=== PATIENT | female | born 1950 | race Caucasian/White ===

== ENCOUNTER 2024-11-14 08:25 | Outpatient (CLI) | payer OTHER, SELFPAY | END 2024-11-14 08:26 | disposition home or self-care (01) | LOC: NFLDREF 11-20 02:05 | PROVIDERS: PCP Internal Medicine; Referring Provider Internal Medicine; Visit Provider Physician Assistant Medical | DX: R10.9 Unspecified abdominal pain (principal); M54.50 Low back pain, unspecified; R82.90 Unspecified abnormal findings in urine | CPT/HCPCS: 87086 ==